=== PATIENT | male | born 1960 | race Caucasian/White ===

== ENCOUNTER 2021-09-19 12:59 | Emergency (ER) | payer MEDICAID, MEDICARE ==
[2021-09-19 14:06] LABS: ANION GAP 17.5 mmol/L (5-15); CHLORIDE,CL 104 mmol/L (98-107); SODIUM,NA 142 mmol/L (136-145)
== END 2021-09-19 17:25 ==
LOC: KA.ED 12:59
DX: Z04.6 Encounter for general psychiatric examination, requested by authority (principal); Z88.8 Allergy status to other drugs, medicaments and biological substances
CPT/HCPCS: 36415; 80048; 81003; 85025; 99283; 99284